=== PATIENT | male | born 1975 ===

== ENCOUNTER 2022-05-12 21:45 | Emergency (ER) | payer OTHER, SELFPAY ==
--- NOTE | ~2022-05-12 | XR_ITS ---
EXAMINATION: XR chest 1V DATE: 05/12/2022 22:19 INDICATION: Shortness breath, cough and cold symptoms TECHNIQUE: frontal view of the chest was obtained. COMPARISON: None FINDINGS: Opacity with sharply defined medial margin projecting over the right costophrenic angle which could r epresent small right pleural effusion tracking along the fissures, atelectasis or artifact of superim posed extra pulmonary soft tissue density. No other airspace opacities, pulmonary edema, pneumothorax or left pleural effusion. Cardiomediastinal silhouette is normal. Old healed left clavicle fracture deformity. IMPRESSION: 1. Possible small right pleural effusion tracking along one of the fissures. No other acute cardiopul monary disease. Reviewed, dictated and finalized at location A. OPERATOR IMPRESSION: 1. Possible small right pleural effusion tracking along one of the fissures. No other acute cardiopulmonary disease.
[2022-05-12 21:52] VITALS: BP 154/75; PULSE 125; RESP 24; TEMP 37.2; O2SAT 93
[2022-05-12 22:41] LABS: Influenza A QL RT-PCR Negative (Negative); Influenza B QL RT-PCR Negative (Negative); RSV RNA, RT-PCR Negative (Negative); SARS-CoV-2 RNA PCR Positive
--- NOTE | 2022-05-12 23:15 | PC.NURSE ---
Family approached this RN and states they are going to take pt and treat symptoms at home, stating the wait is too long . Pt educated on risks of leaving before seeing provider, verbalized understanding. IV removed with tip intact. pt ambulated out of ED with steady gait.
== END 2022-05-12 23:15 | disposition left against medical advice (07) ==
LOC: ANHED 23:37
PROVIDERS: Emergency Provider Emergency Medicine
DX: U07.1 COVID-19 (principal)
CPT/HCPCS: 71045; 87637; 99199